=== PATIENT | female | born 1955 | race Caucasian/White ===

== ENCOUNTER → 2017-07-19 | Outpatient (CLI) | payer BC ==
--- NOTE | 2017-07-20 11:20 | MM ---
Reason for exam: screening (asymptomatic). Last mammogram was performed 1 year ago. History: Patient is postmenopausal. Physical Findings: A clinical breast exam by your physician is recommended on an annual basis and results should be correlated with mammographic findings. MG Screening Mammo w CAD Bilateral CC and MLO view(s) were taken. Prior study comparison: July 07, 2016, bilateral MG screening mammo w CAD. March 21, 2015, bilateral MG screening mammo w CAD. There are scattered fibroglandular densities. Finding #1: There is a 4 mm oval mass in the central position of the right breast. Finding #2: There are typically benign calcifications in both breasts. ASSESSMENT: Incomplete: need additional imaging evaluation, BI-RAD 0 RECOMMENDATION: Special view mammogram and ultrasound of the right breast. [facility] will attempt to contact patient to return for supplemental views and ultrasound.
== END | disposition home or self-care (01) ==
LOC: RADMAMWWP 16:43
PROVIDERS: ATTEND Family Medicine
DX: Z12.31 Encounter for screening mammogram for malignant neoplasm of breast (principal)

== ENCOUNTER → 2017-07-25 | Outpatient (CLI) | payer BC ==
--- NOTE | 2017-07-25 09:15 | MM ---
Reason for exam: additional evaluation requested from abnormal screening. Last mammogram was performed less than 1 month ago. History: Patient is postmenopausal. Physical Findings: Nurse did not find any significant physical abnormalities on exam. MG Work Up Mamm w CAD RT Spot compression CC, spot compression MLO, and ML view(s) were taken of the right breast. Prior study comparison: July 19, 2017, bilateral MG screening mammo w CAD. July 07, 2016, bilateral MG screening mammo w CAD. There are scattered fibroglandular densities. 7mm ovoid circumscribed isodense mass with 2 punctate calcifications may be forward on the spot CC view located 8 -9 o'clock. A subtle asymmetry may have been present here on 2011. These results were verbally communicated with the patient and result sheet given to the patient on 07/25/17. ASSESSMENT: Incomplete: need additional imaging evaluation, BI-RAD 0 RECOMMENDATION: Ultrasound of the right breast. SOHAN
--- NOTE | 2017-07-25 09:17 | USB ---
Reason for exam: additional evaluation requested from abnormal screening. History: Patient is postmenopausal. US Breast Workup Limited RT Right breast ultrasound demonstrates a 1.3 x 1.5 x 0.5cm oval, slightly lobulate mass at 7 o'clock 2cm from nipple. Posterior through transmission is demonstrated. Uncertain if this corresponds to the mammographic finding given the larger size. A lymph node or fibroadenoma are favored. A 6 month follow up recommended. These results were verbally communicated with the patient and result sheet given to the patient on 07/25/17. ASSESSMENT: Probably benign, BI-RAD 3 RECOMMENDATION: Follow-up diagnostic mammogram and ultrasound of the right breast in 6 months.
== END | disposition home or self-care (01) ==
LOC: RADMAMWWP 07:31
PROVIDERS: ATTEND Family Medicine
DX: R92.8 Other abnormal and inconclusive findings on diagnostic imaging of breast (principal)
CPT/HCPCS: 76642; G0206

== ENCOUNTER → 2018-01-31 | Outpatient (CLI) | payer BC ==
--- NOTE | 2018-01-31 11:13 | MM ---
Reason for exam: follow-up at short interval from prior study. Last mammogram was performed 6 months ago. History: Patient is postmenopausal. Physical Findings: Nurse did not find any significant physical abnormalities on exam. MG Diagnostic Mammo RT w CAD CC, MLO, and ML view(s) were taken of the right breast. Prior study comparison: July 25, 2017, right breast MG work up mamm w CAD RT. July 19, 2017, bilateral MG screening mammo w CAD. There are scattered fibroglandular densities. There is no discrete abnormality including area of concern. These results were verbally communicated with the patient and result sheet given to the patient on 01/31/18. ASSESSMENT: Incomplete: need additional imaging evaluation, BI-RAD 0 RECOMMENDATION: Ultrasound of the right breast.
--- NOTE | 2018-01-31 11:14 | USB ---
Reason for exam: additional evaluation requested from abnormal screening. History: Patient is postmenopausal. US Breast RT Right complete breast ultrasound includes all four quadrants, the retroareolar region and axilla. Finding demonstrates no cystic or solid lesion seen. Unable to reproduce prior lesion. These results were verbally communicated with the patient and result sheet given to the patient on 01/31/18. ASSESSMENT: Negative, BI-RAD 1 RECOMMENDATION: Return to routine screening mammogram schedule for both breasts. Back on schedule.
== END | disposition home or self-care (01) ==
LOC: RADMAMWWP 08:05
PROVIDERS: ATTEND Family Medicine
DX: R92.8 Other abnormal and inconclusive findings on diagnostic imaging of breast (principal); R92.0 Mammographic microcalcification found on diagnostic imaging of breast; N63.10 Unspecified lump in the right breast, unspecified quadrant
CPT/HCPCS: 77065

== ENCOUNTER → 2018-09-08 | Outpatient (CLI) | payer MEDICARE ==
[2018-09-08 16:02] LABS: Anion Gap 8.5 mmol/L (4.00-12.00); Carbon Dioxide 27.5 mmol/L (21.6-31.8)
== END ==
LOC: LABWHC1 10:03
PROVIDERS: ATTEND Internal Medicine Interventional Cardiology
DX: I10 Essential (primary) hypertension (principal)
CPT/HCPCS: 36415; 80051; 82565; 84520

== ENCOUNTER → 2018-09-26 | Outpatient (CLI) | payer MEDICARE | LOC: LABWHC1 11:15 | PROVIDERS: ATTEND Physician Assistant Medical | DX: R19.7 Diarrhea, unspecified (principal) | CPT/HCPCS: 87045; 87046; 87324; 87328; 87329 ==

== ENCOUNTER 2018-10-25 07:44 | Day surgery (SDC) | payer MEDICARE ==
[2018-10-20 14:06] VITALS: BMI 44.8
[~2018-10-25 07:44] MED LIST: LACTATED RINGERS 1,000 ML IV SCH; LIDOCAINE 1% 20 ML VIAL (10MG/ML) FOR IV START INTRADERMA PRN
--- NOTE | 2018-10-25 08:06 | P.GSHP ---
History of Present Illness H&P Date: 10/25/18 CHIEF COMPLAINT: Colon screen HISTORY OF PRESENT ILLNESS: The patient is a 63-year-old female who presents for colon screen. Lower endoscopy was offered for further evaluation and management. PAST MEDICAL HISTORY: Please see list. PAST SURGICAL HISTORY: Please see list. MEDICATIONS: Please see list. ALLERGIES: Please see list. SOCIAL HISTORY: No illicit drug use FAMILY HISTORY: No reports of Crohn disease or ulcerative colitis. REVIEW OF ORGAN SYSTEMS: CONSTITUTIONAL: No reports of fevers or chills. PHYSICAL EXAM: VITAL SIGNS: Stable GENERAL: Well-developed pleasant in no acute distress. HEENT: No scleral icterus. Extraocular movements grossly intact. Moist buccal mucosa. NECK: Supple without lymphadenopathy. CHEST: Unlabored respirations. Equal bilateral excursions. CARDIOVASCULAR: Regular rate and rhythm. Distal 2+ pulses. ABDOMEN: Soft, nontender, nondistended. MUSCULOSKELETAL: No clubbing, cyanosis, or edema. ASSESSMENT: 1. Colon screen. PLAN: 1. Recommend proceeding with a lower endoscopy Past Medical History Past Medical History: Atrial Fibrillation, Hyperlipidemia, Hypertension Additional Past Medical History / Comment(s): PACEMAKER ([employer]), HX KIDNEY STONES., GALL STONES., STATES DIARRHEA WITH POOR APPETITE AND 20 # WT LOSS OVER 3 WEEKS IN SEPTEMBER . History of Any Multi-Drug Resistant Organisms: None Reported Past Surgical History: Pacemaker Additional Past Surgical History / Comment(s): COLONOSCOPY. PACEMAKER -[employer] BY DR ESCALANTE May. Past Anesthesia/Blood Transfusion Reactions: Postoperative Nausea & Vomiting ( PONV) Additional Past Anesthesia/Blood Transfusion Reaction / Comment(s): PONV AFTER COLONOSCOPY Type of Cardiac Device: Permanent Pacemaker Device Placement Date:: 05/29/2008 Past Psychological History: No Psychological Hx Reported Smoking Status: Never smoker Past Alcohol Use History: None Reported Past Drug Use History: None Reported - Past Family History Mother Family Medical History: Cancer Additional Family Medical History / Comment(s): COLON CANCER Medications and Allergies Home Medications Medication Instructions Recorded Confirmed Type Lisinopril [Zestril] 10 mg PO BID 12/13/15 10/20/18 History Atorvastatin Calcium [Lipitor] 20 mg PO HS 10/20/18 10/25/18 History Ergocalciferol (Vitamin D2) 50,000 unit PO MIRAMONTES 10/20/18 10/25/18 History [Vitamin D2] Hydrochlorothiazide 25 mg PO DAILY 10/20/18 10/25/18 History Metoprolol Tartrate [Lopressor] 25 mg PO BID 10/20/18 10/20/18 History Rivaroxaban [Xarelto] 20 mg PO DAILY 10/20/18 10/20/18 History Allergies Allergy/AdvReac Type Severity Reaction Status Date / Time No Known Allergies Allergy Verified 10/25/18 07:58
[2018-10-25 08:13] VITALS: RESP 16; TEMP 97
[2018-10-25] MEDS ORDERED: PROPOFOL 10 MG/ML 20 ML VIAL IV ONE (08:35)
[2018-10-25] MEDS ORDERED: LIDOCAINE 1% INJ 10MG/ML (20 ML MDV) ONE (08:35)
--- NOTE | 2018-10-25 08:53 | P.PCN ---
Date of Procedure: 10/25/18 Description of Procedure: PREOPERATIVE DIAGNOSIS: Colonoscopy screening, high risk Family history colon cancer, mother POSTOPERATIVE DIAGNOSIS: Colonoscopy screening, high risk Family history colon cancer, mother OPERATION: Colonoscopy to the ileocecal valve and appendiceal orifice. SURGEON: Bernie Hector MD. ANESTHESIA: MAC. INDICATIONS: The patient is a 63-year-old female who presents for colonoscopy screening. Benefits and risks were described and informed consent was obtained. DESCRIPTION OF PROCEDURE: The patient had undergone Gatorade, MiraLAX and Dulcolax prep. She had been brought into the operating room and laid in the left lateral decubitus position. After adequate intravenous sedation, the rectum was examined with 2% lidocaine jelly. No external hemorrhoids were encountered. The rectal tone was within normal limits. No lesions were palpated in the rectal vault. An Olympus colonoscope was advanced until the ileocecal valve and appendiceal orifice were clearly viewed. The prep was excellent with clear visualization of the mucosal folds. The scope was removed with visualization of each mucosal fold. No scattered diverticulosis was encountered. No colonic polyps were found. No evidence of focal colitis was found. Retroflexion of the scope demonstrated grade 1 internal hemorrhoids without active bleeding or inflammation. The colon was desufflated. The patient had tolerated the procedure well. Withdrawal time was over 6 minutes. FINDINGS: Internal hemorrhoids, grade 1 No external prolapsed hemorrhoids. No arteriovenous malformations. No adenomatous polyps. No focal colitis. RECOMMENDATIONS: Lower endoscopy in 5 years per screening guidelines, 2023 Plan - Discharge Summary Discharge Rx Participant: Yes New Discharge Prescriptions: No Action Lisinopril [Zestril] 10 mg PO BID Rivaroxaban [Xarelto] 20 mg PO DAILY Metoprolol Tartrate [Lopressor] 25 mg PO BID Atorvastatin Calcium [Lipitor] 20 mg PO HS Hydrochlorothiazide 25 mg PO DAILY Ergocalciferol (Vitamin D2) [Vitamin D2] 50,000 unit PO MIRAMONTES Discharge Medication List Lisinopril [Zestril] 10 mg PO BID 12/13/15 [History] Atorvastatin Calcium [Lipitor] 20 mg PO HS 10/20/18 [History] Ergocalciferol (Vitamin D2) [Vitamin D2] 50,000 unit PO MIRAMONTES 10/20/18 [History] Hydrochlorothiazide 25 mg PO DAILY 10/20/18 [History] Metoprolol Tartrate [Lopressor] 25 mg PO BID 10/20/18 [History] Rivaroxaban [Xarelto] 20 mg PO DAILY 10/20/18 [History] Follow up Appointment(s)/Referral(s): Bernie Hector MD [STAFF PHYSICIAN] - As Needed Patient Instructions/Handouts: Colonoscopy (DC), Hemorrhoids (DC) Activity/Diet/Wound Care/Special Instructions: Start XARELTO tomorrow. Repeat colonoscopy in 5 years, 2023 Discharge Disposition: HOME SELF-CARE
[2018-10-25 09:17] VITALS: BP 123/70; PULSE 67
== END 2018-10-25 09:29 | disposition home or self-care (01) ==
LOC: ORWHC2ENDO 07:44
PROVIDERS: ATTEND Surgery Plastic and Reconstructive Surgery
DX: Z12.11 Encounter for screening for malignant neoplasm of colon (principal); K64.0 First degree hemorrhoids; Z80.0 Family history of malignant neoplasm of digestive organs; I48.91 Unspecified atrial fibrillation; Z79.01 Long term (current) use of anticoagulants; E78.5 Hyperlipidemia, unspecified; I10 Essential (primary) hypertension; Z95.0 Presence of cardiac pacemaker; Z87.442 Personal history of urinary calculi; Z79.899 Other long term (current) drug therapy
CPT/HCPCS: J2001; J2704; G0105; 45378

== ENCOUNTER → 2018-11-23 | Outpatient (CLI) | payer MEDICARE ==
--- NOTE | 2018-11-24 11:43 | MM ---
Reason for exam: screening (asymptomatic). Last mammogram was performed 10 months ago. History: Patient is postmenopausal. Physical Findings: A clinical breast exam by your physician is recommended on an annual basis and results should be correlated with mammographic findings. MG Screening Mammo w CAD Bilateral CC and MLO view(s) were taken. Prior study comparison: January 31, 2018, right breast MG diagnostic mammo RT w CAD. July 25, 2017, right breast MG work up mamm w CAD RT. There are scattered fibroglandular densities. Stable benign calcifications. There is no discrete abnormality. No significant changes when compared with prior studies. ASSESSMENT: Benign, BI-RAD 2 RECOMMENDATION: Routine screening mammogram of both breasts in 1 year.
== END | disposition home or self-care (01) ==
LOC: RADMAMWWP 11:07
PROVIDERS: ATTEND Physician Assistant Medical
DX: Z12.31 Encounter for screening mammogram for malignant neoplasm of breast (principal)
CPT/HCPCS: 77067

== ENCOUNTER → 2020-07-08 | Outpatient (CLI) | payer MEDICARE ==
--- NOTE | 2020-07-09 09:27 | MM ---
Reason for exam: screening (asymptomatic). Last mammogram was performed 1 year and 7 months ago. History: Patient is postmenopausal. Physical Findings: A clinical breast exam by your physician is recommended on an annual basis and results should be correlated with mammographic findings. MG Screening Mammo w CAD Bilateral CC and MLO view(s) were taken. Prior study comparison: November 23, 2018, bilateral MG screening mammo w CAD. January 31, 2018, right breast MG diagnostic mammo RT w CAD. There are scattered fibroglandular densities. Finding #1: There is a 7 mm equal density (isodense) mass in the subareolar position of the right breast. Finding #2: There are stable typically benign calcifications in both breasts. ASSESSMENT: Incomplete: need additional imaging evaluation, BI-RAD 0 RECOMMENDATION: Special view mammogram of the right breast. If lesion persists on supplemental views, image directed ultrasound is recommended. [facility] will attempt to contact patient to return for supplemental views and ultrasound if indicated.
== END | disposition home or self-care (01) ==
LOC: RADMAMWWP 07:12
PROVIDERS: ATTEND Family Medicine
DX: Z12.31 Encounter for screening mammogram for malignant neoplasm of breast (principal)
CPT/HCPCS: 77067

== ENCOUNTER → 2020-07-10 | Outpatient (CLI) | payer MEDICARE ==
--- NOTE | 2020-07-10 09:01 | MM ---
Reason for exam: additional evaluation requested from abnormal screening. Last mammogram was performed less than 1 month ago. History: Patient is postmenopausal. Physical Findings: Nurse did not find any significant physical abnormalities on exam. MG Work Up Mamm w CAD RT Spot compression CC and spot compression CCRL view(s) were taken of the right breast. Prior study comparison: July 08, 2020, bilateral MG screening mammo w CAD. November 23, 2018, bilateral MG screening mammo w CAD. The breast tissue is heterogeneously dense. This may lower the sensitivity of mammography. Finding: There are intermediate concern, suspicious calcifications in the right breast per marker on CC. Asymmetric breast tissue. These results were verbally communicated with the patient and result sheet given to the patient on 07/10/20. ASSESSMENT: Incomplete: need additional imaging evaluation, BI-RAD 0 RECOMMENDATION: Ultrasound of the right breast.
--- NOTE | 2020-07-10 10:23 | USB ---
Reason for exam: additional evaluation requested from abnormal screening. History: Patient is postmenopausal. US Breast Workup Limited RT Right limited breast ultrasound including focal area of concern, retroareolar and axilla demonstrates a 6 x 2 x 5mm cystic lesion at 12 o'clock/nipple. These results were verbally communicated with the patient and result sheet given to the patient on 07/10/20. ASSESSMENT: Probably benign, BI-RAD 3 RECOMMENDATION: Follow-up diagnostic mammogram and ultrasound of the right breast in 6 months.
== END | disposition home or self-care (01) ==
LOC: RADMAMWWP 08:17
PROVIDERS: ATTEND Family Medicine
DX: R92.8 Other abnormal and inconclusive findings on diagnostic imaging of breast (principal)
CPT/HCPCS: 77065

== ENCOUNTER → 2021-03-26 | Outpatient (CLI) | payer MEDICARE ==
--- NOTE | 2021-03-26 09:53 | USB ---
EXAMINATION TYPE: US breast limited RT DATE OF EXAM: 03/26/2021 COMPARISON: Mammogram same date, ultrasound 07/10/2020 CLINICAL HISTORY: Right retroareolar density on mammogram and prior ultrasound. Findings: Targeted right breast ultrasound was performed in the retroareolar region and axilla. Again seen is a tiny cluster of cysts versus focally dilated duct in the retroareolar right breast measuring up to 0 .7 x 0.3 x 0.5 cm, not significantly changed since the prior examination and probably benign. Follow- up ultrasound is recommended in 6 months. In the right axilla, there is a lymph node which demonstrates minimal cortical thickening measuring u p to 0.3 cm which is probably benign. Clinical correlation is recommended. Follow-up ultrasound is re commended in 6 months. IMPRESSION: 1. Unchanged likely cluster of cysts versus focally dilated duct in the retroareolar right breast for which follow-up ultrasound is recommended in 6 months. 2. There is a single deep right axillary lymph node with borderline cortical thickening. Please corre late clinically as this may be a reactive lymph node. At least follow-up ultrasound is recommended in 6 months. BI-RADS 3, probably benign.
--- NOTE | 2021-03-26 10:16 | MM ---
Reason for exam: follow-up at short interval from prior study. Last mammogram was performed 9 months ago. History: Patient is postmenopausal. Physical Findings: Nurse did not find any significant physical abnormalities on exam. MG 3D Diag Mammo W/Cad RT CC and MLO view(s) were taken of the right breast. Prior study comparison: July 10, 2020, right breast MG work up mamm w CAD RT. July 08, 2020, bilateral MG screening mammo w CAD. November 23, 2018, bilateral MG screening mammo w CAD. There are scattered fibroglandular densities. Right retroareolar density is unchanged. These results were verbally communicated with the patient and result sheet given to the patient on 03/26/21. ASSESSMENT: Incomplete: need additional imaging evaluation, BI-RAD 0 RECOMMENDATION: Ultrasound of the right breast. (as per prior report)
== END | disposition home or self-care (01) ==
LOC: RADMAMWWP 08:53
PROVIDERS: ATTEND Family Medicine
DX: N64.89 Other specified disorders of breast (principal); R59.0 Localized enlarged lymph nodes; Z78.0 Asymptomatic menopausal state
CPT/HCPCS: 77065; 76642; G0279; 77061

== ENCOUNTER → 2021-11-02 | Outpatient (CLI) | payer MEDICARE ==
--- NOTE | 2021-11-02 10:59 | MM ---
Reason for exam: additional evaluation requested from prior study. Last mammogram was performed 7 months ago. History: Patient is postmenopausal. Physical Findings: Nurse did not find any significant physical abnormalities on exam. MG Diagnostic Mammo w CAD MANI Bilateral CC and MLO view(s) were taken. Prior study comparison: March 26, 2021, right breast MG 3d diag mammo w/cad RT. July 10, 2020, right breast MG work up mamm w CAD RT. There are scattered fibroglandular densities. Finding #1: There is a 6 mm equal density (isodense), circumscribed oval mass located 1 cm from the nipple in the subareolar position of the right breast. Finding #2: There are increased intermediate concern, suspicious, fine, grouped/clustered calcifications in the right breast. New finding since March 26, 2021 and July 10, 2020. These results were verbally communicated with the patient and result sheet given to the patient on 11/02/21. ASSESSMENT: Incomplete: need additional imaging evaluation, BI-RAD 0 RECOMMENDATION: Ultrasound of the right breast.
--- NOTE | 2021-11-02 11:01 | USB ---
Reason for exam: additional evaluation requested from abnormal screening. History: Patient is postmenopausal. US Breast Limited RT Right limited breast ultrasound including focal area of concern, retroareolar and axilla demonstrates a 1.3 x 0.4 x 0.4cm duct ectasia at the posterior nipple, questionable microcalcifications. These results were verbally communicated with the patient and result sheet given to the patient on 11/02/21. ASSESSMENT: Suspicious, BI-RAD 4 RECOMMENDATION: Ultrasound core biopsy of the right breast. Called Dr. Pearson's office with mammographic findings and has scheduled an appointment for the patient for 11/05/21 at 4:[address] Pearl. Biopsy scheduled for 11/11/21 at 8:00. PRELIMINARY REPORT CALLED AND FAXED TO DR. PEARL ON 11/02/21.
== END | disposition home or self-care (01) ==
LOC: RADMAMWWP 07:36
PROVIDERS: ATTEND Family Medicine
DX: R92.8 Other abnormal and inconclusive findings on diagnostic imaging of breast (principal); N63.0 Unspecified lump in unspecified breast; Z78.0 Asymptomatic menopausal state
CPT/HCPCS: 77066

== ENCOUNTER → 2021-11-05 | Outpatient (CLI) | payer MEDICARE ==
[2021-11-05 16:13] VITALS: BP 112/64; RESP 18; TEMP 98
--- NOTE | 2021-11-05 16:27 | P.GSHP ---
History of Present Illness H&P Date: 11/05/21 Chief Complaint: abnormal right breast mammogram and ultrasound Haley is a 66 year old white female seen in consultation for Trena Downs N.P.. She show any new lumps masses or nodules of concern in either breast. She had a routine screening mammogram and ultrasound of the right breast performed within the last week. This revealed a lesion posterior to the right nipple areolar complex. There were some minimal calcifications however was felt to be seen best on ultrasound for core biopsy purposes. Again the patient does not feel any lumps masses or nodules of concern in either breast. She is not complaining of any pain in her breast. She has not had any recent trauma or infection in the breast. Nicotine: none caffiene: Diet Coke daily 1 Chocolate: none Family history: Daughter: Colon cancer Mother: Colon cancer Hormonal history: Menarche: 13 , breast fed: no, age at first : 19 menopause: 48 BCP:7 years hormones: none Surgical history: Pacemaker Medical history: Atrial fibrillation HTN hyperlipedema Social History: Nicotine: Negative Alcohol: Negative Drugs: Negative - Constitutional Constitutional: Denies chills, Denies fever - EENT Eyes: denies blurred vision, denies pain Ears: deny: decreased hearing, tinnitus Ears, nose, mouth and throat: Denies headache, Denies sore throat - Breasts Breasts: bilateral: as per HPI - Cardiovascular Cardiovascular: Denies chest pain, Denies shortness of breath - Respiratory Respiratory: Denies cough, Denies 7 - Gastrointestinal Gastrointestinal: Denies abdominal pain, Denies diarrhea, Denies nausea, Denies vomiting - Genitourinary (Female) Genitourinary: Denies dysuria, Denies hematuria - Menstruation Menstruation: Reports postmenopausal - Musculoskeletal Musculoskeletal: Denies myalgias - Integumentary Integumentary: Denies pruritus, Denies rash - Neurological Neurological: Denies numbness, Denies weakness - Psychiatric Psychiatric: Denies anxiety, Denies depression - Endocrine Endocrine: Denies fatigue, Denies weight change - Hematologic/Lymphatic Comment: patient is on xeralto - Allergic/Immunologic Allergic/Immunologic: Reports as per HPI Past Medical History Past Medical History: Atrial Fibrillation, Hyperlipidemia, Hypertension Additional Past Medical History / Comment(s): back pain History of Any Multi-Drug Resistant Organisms: None Reported Past Surgical History: Pacemaker Additional Past Surgical History / Comment(s): COLONOSCOPY. PACEMAKER -[employer] BY DR ESCALANTE May. Past Anesthesia/Blood Transfusion Reactions: Postoperative Nausea & Vomiting (PONV) Additional Past Anesthesia/Blood Transfusion Reaction / Comment(s): PONV AFTER COLONOSCOPY Type of Cardiac Device: Permanent Pacemaker Device Placement Date:: 05/29/2008 Past Psychological History: No Psychological Hx Reported Past Alcohol Use History: None Reported Past Drug Use History: None Reported - Past Family History Mother Family Medical History: Cancer Additional Family Medical History / Comment(s): COLON CANCER Medications and Allergies Home Medications Medication Instructions Recorded Confirmed Type lisinopriL [Zestril] 10 mg PO BID 12/13/15 11/05/21 History Atorvastatin Calcium [Lipitor] 20 mg PO HS 10/20/18 11/05/21 History Ergocalciferol (Vitamin D2) 50,000 unit PO MIRAMONTES 10/20/18 11/05/21 History [Vitamin D2] Metoprolol Tartrate [Lopressor] 25 mg PO BID 10/20/18 11/05/21 History Rivaroxaban [Xarelto] 20 mg PO DAILY 10/20/18 11/05/21 History hydroCHLOROthiazide 25 mg PO DAILY 10/20/18 11/05/21 History Allergies Allergy/AdvReac Type Severity Reaction Status Date / Time No Known Allergies Allergy Verified 11/05/21 16:03 Surgical - Exam BMI 47.6 - General no distress - Neck trachea midline - Respiratory normal respiratory effort - Cardiovascular Rhythm: regular Heart Sounds: normal: S1, S2 - Abdomen Abdomen: soft - Integumentary normal turgor - Neurologic no disoriented, no combative - Musculoskeletal normal gait, normal posture - Psychiatric oriented to time, oriented to place, memory intact Breast Exam: BRA: 44C inspection: Lateral grade 3 ptosis Palpation: Right breast: Multiple positional exam fibrocystic changes no dominant masses or nodules of concern Particular attention to the area posterior to the nipple areolar complex does not reveal any discrete mass Right axilla: No adenopathy of concern Left breast: Multiple positional exam fibrocystic changes no dominant masses or nodules of concern Left axilla: No adenopathy of concern Results Case reviewed in detail with Dr. Seymour from radiology Assessment and Plan Assessment: Impression: Abnormal right breast mammogram and ultrasound with attention to the posterior nipple areolar complex Fibrocystic breast changes atrial fibrillation/ she has pacemaker and is on xeralto BMI 47.6 Hypertension Plan: Ultrasound-guided core biopsy lesion right breast Follow-up after ultrasound-guided core biopsy Stop xeralto as per cardiology The risk and benefits of the procedure discussed with the patient. Risks include but are not limited to bleeding, infection, reaction to the anesthetic. We must ascertain that the areas correctly biopsy and if this were to be d iscordant then further biopsy may be recommended. CC: Trena Downs
== END ==
LOC: WWCWWP 15:50
PROVIDERS: ATTEND Surgery
DX: N60.11 Diffuse cystic mastopathy of right breast (principal); I48.91 Unspecified atrial fibrillation; I10 Essential (primary) hypertension; E78.5 Hyperlipidemia, unspecified; Z95.0 Presence of cardiac pacemaker; Z79.01 Long term (current) use of anticoagulants; Z79.899 Other long term (current) drug therapy

== ENCOUNTER → 2021-11-11 | Day surgery (SDC) | payer MEDICARE ==
[2021-11-11 07:21] VITALS: RESP 16; TEMP 98.1
[2021-11-11 09:23] VITALS: BP 120/80; PULSE 71
--- NOTE | 2021-11-11 11:11 | USB ---
EXAMINATION TYPE: US biopsy breast VAD RT, MG diagnostic mammo RT wo CAD DATE OF EXAM: 11/11/2021 CLINICAL HISTORY: R92.8 ABN MAMMO. TECHNIQUE: Ultrasound guided core biopsy of right 12:00 nipple region. COMPARISON: NONE FINDINGS: The procedure of ultrasound guided core biopsy was explained to the patient. Benefits, alt ernatives, and risks were discussed. An informed consent was then obtained. The patient was placed in supine positioning for imaging and for the procedure. The overlying skin w as prepped and draped in usual sterile fashion. Lidocaine buffered with bicarbonate was used as anes thetic into the skin and subcutaneous tissue up to area of concern in the right 12:00 nipple region. Under ultrasound guidance, a 12-gauge vacuum assisted biopsy gun device was used to obtain 2 core leora ples. The lesion was no longer visualized. Following this, a biopsy clip was left in lesion. Postpro cedural mammogram demonstrates appropriate clip placement. The patient tolerated the procedure well without any immediate complication. The patient was kept in the radiology department for short stay after the procedure and then discharged home in stable condi tion. IMPRESSION: Successful, uncomplicated ultrasound guided core biopsy of area of concern in the right 1 2:00 nipple region., full pathology results to follow.
== END | disposition home or self-care (01) ==
LOC: RADUSWWP 07:02
PROVIDERS: ATTEND Surgery
DX: N60.11 Diffuse cystic mastopathy of right breast (principal)
CPT/HCPCS: 88305; 77065; 19083; A4648; J2001

== ENCOUNTER → 2021-11-27 | Outpatient (CLI) | payer MEDICARE ==
[2021-11-27 12:01] VITALS: BP 122/77; PULSE 67; RESP 17; TEMP 97.8
--- NOTE | 2021-11-27 12:29 | P.PN ---
Subjective Progress Note Date: 11/27/21 Principal diagnosis: Fibrocystic breast changes Haley is a 66 year old white female seen in consultation for Trena Downs N.P.. She show any new lumps masses or nodules of concern in either breast. She had a routine screening mammogram and ultrasound of the right breast per formed within the last week. This revealed a lesion posterior to the right nipple areolar complex. There were some minimal calcifications however was felt to be seen best on ultrasound for core biopsy purposes. Again the patient does not feel any lumps masses or nodules of concern in either breast. She is not complaining of any pain in her breast. She has not had any recent trauma or infection in the breast. An ultrasound core biopsy was done on 11-11-21 which was benign breast tissue. The patient tolerated the procedure without difficulty. It was felt to be benign concordant. Objective - Vital Signs Vital signs: Vital Signs Temp 97.8 F 11/27/21 11:59 Pulse 67 11/27/21 11:59 Resp 17 11/27/21 11:59 BP 122/77 11/27/21 11:59 Pulse Ox 100 11/27/21 11:59 Intake & Output 11/26/21 11/27/21 11/27/21 18:59 06:59 18:59 Weight 117.934 kg - Exam BMI 47.6 - Constitutional General appearance: Present: cooperative - EENT Eyes: Present: EOMI ENT: Present: hearing grossly normal - Neck Neck: Present: normal ROM - Respiratory Respiratory: bilateral: CTA - Cardiovascular Rhythm: regular Heart sounds: normal: S1, S2 - Integumentary Integumentary: Present: normal turgor - Psychiatric Psychiatric: Present: A&O x's 3, appropriate affect, intact judgment & insight - Additional findings Additional findings: Breast examination: Examination is limited to inspection of the right breast at the biopsy site Mild ecchymosis no evidence of any infection or hematoma Assessment and Plan Assessment: Impression: Patient status post ultrasound-guided core biopsy right breast/this was done and 3922, it revealed benign breast with fibrocystic changes This was felt to be benign and concordant Plan: Repeat right breast mammogram and ultrasound in 6 months with physician exam at that time CC: Trena Downs
== END ==
LOC: WWCWWP 11:53
PROVIDERS: ATTEND Surgery
DX: N60.11 Diffuse cystic mastopathy of right breast (principal); D24.1 Benign neoplasm of right breast

== ENCOUNTER → 2022-05-17 | Outpatient (CLI) | payer MEDICARE ==
--- NOTE | 2022-05-17 14:28 | MM ---
Reason for Exam: Follow-up at short interval from prior study. Last screening mammogram was performed 7 month(s) ago. Patient History: Menarche at age 12. First Full-Term at age 19. Postmenopausal. Previous chest radiation therapy. 11/11/2021, Benign Core Biopsy on the right side. Risk Values: Jemma 5 year model risk: 1.7%. NCI Lifetime model risk: 5.1%. Prior Study Comparison: 03/26/2021 Right Diagnostic Mammogram, [facility]. 11/02/2021 Bilateral Diagnostic Mammogram, [facility]. 11/11/2021 Right Diagnostic Mammogram, [facility]. Tissue Density: Right: There are scattered fibroglandular densities. Findings: Analyzed By CAD. Less distinct appearance of the right retroareolar breast mass with biopsy clip in place. Stable round calcifications within the posterior right breast. No new worrisome calcifications or mass. Overall Assessment: Benign, BI-RAD 2 Management: Screening Mammogram of both breasts in 6 months. A clinical breast exam by your physician is recommended on an annual basis and results should be correlated with mammographic findings. This exam should not preclude additional follow-up of suspicious palpable abnormalities. Results were given to the patient verbally at the time of exam. Electronically signed and approved by: Elijah Draper D.O.
== END | disposition home or self-care (01) ==
LOC: RADMAMWWP 14:04
PROVIDERS: ATTEND Surgery
DX: R92.1 Mammographic calcification found on diagnostic imaging of breast (principal); Z78.0 Asymptomatic menopausal state
CPT/HCPCS: 77065

== ENCOUNTER → 2022-05-27 | Outpatient (CLI) | payer MEDICARE ==
[2022-05-27 12:23] VITALS: BP 109/73; PULSE 63; RESP 16; TEMP 97
--- NOTE | 2022-05-27 12:51 | P.PN ---
Subjective Progress Note Date: 05/27/22 Principal diagnosis: Fibrocystic breast changes Haley is a 67 year old white female status post ultrasound core biopsy of the right breast and 3922. Pathology revealed benign breast tissue. Her last bilateral mammogram was in October 2021, no lesions of concern were noted in the left breast. She had a right breast mammogram on which was felt to be benign BIRADS 2. She is not complaining of any new lumps masses or nodules in either breast. Jemma Risk analysis: five-year risk for breast cancer is 1.7% Lifetime risk 5.1% Patient declined chemoprevention. Nicotine: none caffiene: Diet Coke daily 1 Chocolate: none Family history: Daughter: Colon cancer Mother: Colon cancer Hormonal history: Menarche: 13 , breast fed: no, age at first : 19 menopause: 48 BCP:7 years hormones: none Surgical history: Pacemaker Medical history: Atrial fibrillation HTN hyperlipedema Social History: Nicotine: Negative Alcohol: Negative Drugs: Negative - Constitutional Constitutional: Denies chills, Denies fever - EENT Eyes: denies blurred vision, denies pain Ears: deny: decreased hearing, tinnitus Ears, nose, mouth and throat: Denies headache, Denies sore throat - Breasts Breasts: bilateral: as per HPI - Cardiovascular Cardiovascular: Denies chest pain, Denies shortness of breath - Respiratory Respiratory: Denies cough - Gastrointestinal Gastrointestinal: Denies abdominal pain, Denies diarrhea, Denies nausea, Denies vomiting - Genitourinary (Female) Genitourinary: Denies dysuria, Denies hematuria - Menstruation Menstruation: Reports postmenopausal - Musculoskeletal Musculoskeletal: Denies myalgias - Integumentary Integumentary: Denies pruritus, Denies rash - Neurological Neurological: Denies numbness, Denies weakness - Psychiatric Psychiatric: Denies anxiety, Denies depression - Endocrine Endocrine: Denies fatigue, Denies weight change - Hematologic/Lymphatic Comment: patient is on xeralto - Allergic/Immunologic Allergic/Immunologic: Reports as per HPI Objective - Vital Signs Vital signs: Vital Signs Temp 97.0 F L 05/27/22 12:21 Pulse 63 05/27/22 12:21 Resp 16 05/27/22 12:21 BP 109/73 05/27/22 12:21 Pulse Ox 100 05/27/22 12:21 FiO2 Intake & Output 05/26/22 05/27/22 05/27/22 18:59 06:59 18:59 Weight 117.934 kg - Constitutional General appearance: Present: cooperative - EENT Eyes: Present: EOMI ENT: Present: hearing grossly normal - Neck Neck: Present: normal ROM - Respiratory Respiratory: bilateral: CTA - Cardiovascular Rhythm: regular Heart sounds: normal: S1, S2 - Integumentary Integumentary: Present: normal turgor - Musculoskeletal Musculoskeletal: Present: gait normal - Psychiatric Psychiatric: Present: A&O x's 3, appropriate affect, intact judgment & insight - Additional findings Additional findings: Breast Exam: BRA: 46C Inspection: Fungal infection lateral inferior aspect of the right breast, bilateral grade 3 ptosis Palpation: Right breast: Multi-positional exam fibrocystic changes no dominant masses or nodules of concern Right axilla: No adenopathy of concern Left breast: Multi-positional exam fibrocystic changes no dominant masses or nodules of concern Left axilla: No adenopathy of concern Assessment and Plan Assessment: Impression: Fibrocystic breast changes Fungal infection under right breast Plan: Patient is for bilateral mammogram July 2022 Follow up after bilateral mammogram Nystatin cream for fungal infection Patient to follow up sooner any questions or concerns Cc: Trena Downs
== END ==
LOC: WWCWWP 12:08
PROVIDERS: ATTEND Surgery
DX: N60.11 Diffuse cystic mastopathy of right breast (principal); N60.12 Diffuse cystic mastopathy of left breast; B36.8 Other specified superficial mycoses; I10 Essential (primary) hypertension; I48.91 Unspecified atrial fibrillation; E78.5 Hyperlipidemia, unspecified

== ENCOUNTER → 2022-07-12 | Outpatient (CLI) | payer MEDICARE | END | disposition home or self-care (01) | LOC: RADMAMWWP 10:14 | PROVIDERS: ATTEND Surgery | DX: Z53.9 Procedure and treatment not carried out, unspecified reason (principal) ==

== ENCOUNTER → 2022-12-10 | Outpatient (CLI) | payer MEDICARE ==
[2022-12-10 13:14] VITALS: BP 132/80; PULSE 45; RESP 16; TEMP 98.6
--- NOTE | 2022-12-10 13:19 | P.PN ---
Subjective Progress Note Date: 12/10/22 Principal diagnosis: Fibrocystic breast changes, fungal infection under both breast 12-10-22 Haley is a 67 year old white female status post ultra-sound core biopsy of a site in the right breast on 11-11-21. This was benign concordant. 11-15-22 bilateral mammogram BIRAD 2, personally reviewed Patient has declined chemo-prevention in the past. Jemma 5 year: 1.7% life time risk: 5.1% Nicotine: none caffiene: Diet Coke daily 1 Chocolate: none Family history: Daughter: Colon cancer Mother: Colon cancer Hormonal history: Menarche: 13 , breast fed: no, age at first : 19 menopause: 48 BCP:7 years hormones: none Surgical history: Pacemaker Medical history: Atrial fibrillation HTN hyperlipedema Social History: Nicotine: Negative Alcohol: Negative Drugs: Negative - Constitutional Constitutional: Denies chills, Denies fever - EENT Eyes: denies blurred vision, denies pain Ears: deny: decreased hearing, tinnitus Ears, nose, mouth and throat: Denies headache, Denies sore throat - Breasts Breasts: bilateral: as per HPI - Cardiovascular Cardiovascular: Denies chest pain, Denies shortness of breath - Respiratory Respiratory: Denies cough - Gastrointestinal Gastrointestinal: Denies abdominal pain, Denies diarrhea, Denies nausea, Denies vomiting - Genitourinary (Female) Genitourinary: Denies dysuria, Denies hematuria - Menstruation Menstruation: Reports postmenopausal - Musculoskeletal Musculoskeletal: Denies myalgias - Integumentary Integumentary: Denies pruritus, Denies rash - Neurological Neurological: Denies numbness, Denies weakness - Psychiatric Psychiatric: Denies anxiety, Denies depression - Endocrine Endocrine: Denies fatigue, Denies weight change - Hematologic/Lymphatic Comment: patient is on xeralto - Allergic/Immunologic Allergic/Immunologic: Reports as per HPI Past Medical History Past Medical History: Atrial Fibrillation, Hyperlipidemia, Hypertension Additional Past Medical History / Comment(s): back pain History of Any Multi-Drug Resistant Organisms: None Reported Past Surgical History: Pacemaker Additional Past Surgical History / Comment(s): COLONOSCOPY. PACEMAKER -[employer] BY DR ESCALANTE May. Past Anesthesia/Blood Transfusion Reactions: Postoperative Nausea & Vomiting (PONV) Additional Past Anesthesia/Blood Transfusion Reaction / Comment(s): PONV AFTER COLONOSCOPY Type of Cardiac Device: Permanent Pacemaker Device Placement Date:: 05/29/2008 Past Psychological History: No Psychological Hx Reported Past Alcohol Use History: None Reported Past Drug Use History: None Reported - Past Family History Mother Family Medical History: Cancer Additional Family Medical History / Comment(s): COLON CANCER Medications and Allergies Home Medications Medication Instructions Recorded Confirmed Type lisinopriL [Zestril] 10 mg PO BID 12/13/15 11/05/21 History Atorvastatin Calcium [Lipitor] 20 mg PO HS 10/20/18 11/05/21 History Ergocalciferol (Vitamin D2) 50,000 unit PO MIRAMONTES 10/20/18 11/05/21 History [Vitamin D2] Metoprolol Tartrate [Lopressor] 25 mg PO BID 10/20/18 11/05/21 History Rivaroxaban [Xarelto] 20 mg PO DAILY 10/20/18 11/05/21 History hydroCHLOROthiazide 25 mg PO DAILY 10/20/18 11/05/21 History Allergies Allergy/AdvReac Type Severity Reaction Status Date / Time No Known Allergies Allergy Verified 11/05/21 16:03 Objective - Constitutional General appearance: Present: cooperative - EENT Eyes: Present: EOMI ENT: Present: hearing grossly normal - Neck Neck: Present: normal ROM - Respiratory Respiratory: bilateral: CTA - Cardiovascular Rhythm: regular Heart sounds: normal: S1, S2 - Gastrointestinal General gastrointestinal: Present: soft - Integumentary Integumentary: Present: normal turgor - Musculoskeletal Musculoskeletal: Present: gait normal - Psychiatric Psychiatric: Present: A&O x's 3, appropriate affect, intact judgment & insight - Additional findings Additional findings: Breast Exam: BRA: 44C inspection: Lateral grade 3 ptosis Palpation: Right breast: Multiple positional exam fibrocystic changes no dominant masses or nodules of concern Particular attention to the area posterior to the nipple areolar complex does not reveal any discrete mass Right axilla: No adenopathy of concern Left breast: Multiple positional exam fibrocystic changes no dominant masses or nodules of concern Left axilla: No adenopathy of concern Lateral fungal infection under both breast Assessment and Plan Assessment: Impression: Atrial fibrillation HTN hyperlipedema Fibrocystic breast changes Recent bilateral mammogram 25549 benign BIRADS 2 personally reviewed Fungal infection under both breasts Plan: Nystatin as needed Bilateral mammogram 1 year Follow-up in 1 year CC: Trena Downs
== END ==
LOC: WWCWWP 12:36
PROVIDERS: ATTEND Surgery
DX: I48.91 Unspecified atrial fibrillation (principal); I10 Essential (primary) hypertension; E78.5 Hyperlipidemia, unspecified; Z90.13 Acquired absence of bilateral breasts and nipples; Z12.31 Encounter for screening mammogram for malignant neoplasm of breast; Z79.899 Other long term (current) drug therapy

== ENCOUNTER 2023-03-28 13:45 | Day surgery (SDC) | payer MEDICARE ==
[~2023-03-28 13:45] MED LIST changes: -LACTATED RINGERS 1,000 ML IV SCH; -LIDOCAINE 1% 20 ML VIAL (10MG/ML) FOR IV START INTRADERMA PRN; +ceFAZolin 1 GM in SODIUM CHLORIDE 0.9% IRRIG BTL 250 ML IRRIGATION PRN
[2023-03-28] MEDS: SODIUM CHLORIDE 0.9% 1,000 ML IV SCH ×2 (14:42→19:43)
[2023-03-28 14:47] LABS: Basophils % (A) 0 %; Eosinophils # (A) 0.2 k/uL (0-0.7); Eosinophils % (A) 3 %; HCT 33.7 % (34.0-46.0); HGB 11.5 gm/dL (11.4-16.0); Lymphocytes # (A) 1.5 k/uL (1.0-4.8); Lymphocytes % (A) 25 %; MCH 30.3 pg (25.0-35.0); MCHC 34.2 g/dL (31.0-37.0); MCV 88.6 fL (80.0-100.0); Mean Platelet Volume 8.6; Monocytes # (A) 0.3 k/uL (0-1.0); Monocytes % (A) 5 %; Neutrophils # (A) 3.9 k/uL (1.3-7.7); Neutrophils % (A) 65 %; Platelet Count 224 k/uL (150-450); RDW 14.1 % (11.5-15.5)
[2023-03-28 14:57] LABS: African American GFR (CKD) 62 (>60 ml/min/1.73 sqM); Anion Gap 2 mmol/L; Blood Urea Nitrogen 19 mg/dL (7-17); Calcium 9.5 mg/dL (8.4-10.2); Carbon Dioxide 28 mmol/L (22-30); Chloride 102 mmol/L (98-107); Glucose 96 mg/dL (74-99); Non-African American GFR(CKD) 54 (>60 ml/min/1.73 sqM); Potassium 3.8 mmol/L (3.5-5.1); Sodium 132 mmol/L (137-145)
[2023-03-28] MEDS ORDERED: LIDOCAINE 1% INJ 10MG/ML (20 ML MDV) ONE ×2 (17:12)
[2023-03-28] MEDS: LIDOCAINE 1% INJ 10MG/ML (20 ML MDV) SQ ONE ×2 (17:16→18:04)
[2023-03-28] MEDS ORDERED: SODIUM CHLORIDE 0.9% IVPB ONE (17:28)
[2023-03-28] MEDS ORDERED: VANCOMYCIN IVPB ONE (17:28)
[2023-03-28] MEDS ORDERED: fentaNYL (PF) 50 MCG/ML 2 ML AMP ONE (17:33)
[2023-03-28] MEDS: fentaNYL (PF) 50 MCG/ML 2 ML AMP IVP ONE ×2 (17:36→18:05)
[2023-03-28] MEDS ORDERED: VANCOMYCIN 1,750 MG in SODIUM CHLORIDE 0.9% 500 ML 500 ML IVPB ONE (18:00)
--- NOTE | 2023-03-28 18:32 | P.EPPROC ---
- EP Procedure Note Electrophysiology Procedure Note: Transvenous temporary pacing procedure Indication for the procedure: Severe underlying bradycardia/pacemaker dependency Patient was brought to the EP lab in a fasting state. Written informed consent was obtained prior to the procedure. The right groin was prepped and draped as a protocol. A 6-Cymraes sheath was placed in the right femoral vein. Via this, a temporary pacing catheter was placed in the right ventricle. Thresholds were interrogated. Temporary pacing was performed through the rest of the procedure. At the end of the entire procedure, the TVP was removed. The sheath was removed and hemostasis was assured. Patient tolerated the procedure well without any acute complications. Procedure performed Transvenous temporary pacing
--- NOTE | 2023-03-28 18:37 | P.EPPROC ---
- EP Procedure Note Electrophysiology Procedure Note: Diagnosis Symptomatic bradycardia/status post dual-chamber pacemaker implantation Now pacemaker dependent Device at LELE on normal battery depletion Procedure Dual-chamber pacemaker generator change Details Patient was brought to the EP lab in a fasting state. Written informed consent was obtained prior to the procedure. Conscious sedation provided. Cinefluoroscopy of the leads performed. Atrial lead screwed in the right atrial appendage RV lead in the RV apex, loss of heel noted, chronic IV antibiotics administered. Local anesthesia administered. A 4 cm incision made in the pectoral area. Device explanted Device was originally in a very subcutaneous location A new subfascial pocket was made and the new generator was placed in this Leads were freed from the surrounding capsule Partial capsulectomy was performed Hemostasis was assured Chronic atrial lead, [employer] model #4479. P waves 0.6 mV, pacing impedance 285 ohms and pacing threshold 0.75 V at 0.4 ms Chronic RV lead in RV apex. 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
[2023-03-28] MEDS ORDERED: ACETAMINOPHEN TAB 325 MG TAB PO PRN (18:39)
[2023-03-28] MEDS ORDERED: ATORVASTATIN 20 MG TAB PO SCH (21:00)
[2023-03-28] MEDS: lisinopriL 10 MG TAB PO SCH (21:11)
[2023-03-28] MEDS: METOPROLOL TARTRATE 25 MG TAB PO SCH ×2 (21:11→22:39)
[2023-03-29] MEDS: SODIUM CHLORIDE 0.9% 1,000 ML IV SCH ×2 (00:37)
[2023-03-29] MEDS ORDERED: hydroCHLOROthiazide 25 MG TAB PO SCH (09:00)
[2023-03-29] MEDS: METOPROLOL TARTRATE 25 MG TAB PO SCH (10:33)
[2023-03-29] MEDS: lisinopriL 10 MG TAB PO SCH (10:33)
[2023-03-29 10:36] VITALS: BP 102/66; PULSE 56; RESP 18; TEMP 97.7
--- NOTE | 2023-03-29 16:31 | P.DS ---
Providers Attending physician: Joe Quiroz Primary care physician: Stated None Hospital Course: Patient is doing well. Minimal soakage the dressing site Mild discomfort at the surgical site Groins of healed well no hematoma no swelling in the right groin from the TVP Normal breath sounds are clear Heart sounds are normal Blood pressure 119/61 mmHg pulse rate 70 afebrile Impression Complete heart block Pacemaker at LELE Status post dual-chamber pacemaker generator change, backup TVP Plan discharge home today after completion of IV antibiotics Follow up in the device clinic in one week Plan - Discharge Summary Discharge Rx Participant: No New Discharge Prescriptions: No Action lisinopriL [Zestril] 10 mg PO BID Rivaroxaban [Xarelto] 20 mg PO HS Metoprolol Tartrate [Lopressor] 25 mg PO BID Atorvastatin Calcium [Lipitor] 20 mg PO HS RX: hydroCHLOROthiazide 25 mg PO QAM Cholecalciferol [Vitamin D3 (25 Mcg = 1000 Iu)] 25 mcg PO QAM Discharge Medication List lisinopriL [Zestril] 10 mg PO BID 12/13/15 [History] Atorvastatin Calcium [Lipitor] 20 mg PO HS 10/20/18 [History] Metoprolol Tartrate [Lopressor] 25 mg PO BID 10/20/18 [History] RX: hydroCHLOROthiazide 25 mg PO QAM 10/20/18 [History] Rivaroxaban [Xarelto] 20 mg PO HS 10/20/18 [History] Cholecalciferol [Vitamin D3 (25 Mcg = 1000 Iu)] 25 mcg PO QAM 03/23/23 [History] Follow up Appointment(s)/Referral(s): Joe Quiroz MD [STAFF PHYSICIAN] - 1 Week (APPOINTMENT MADE ON March @ 1:00PM FOR YOUR DEVICE CHECK. KEEP YOUR APPOINTMENT WITH DR. RUIZ PREVIOUSLY SCHEDULED.) Patient Instructions/Handouts: Moderate Sedation (DC), Pacemaker Generator Change (DC) Discharge Disposition: HOME SELF-CARE
== END 2023-03-29 11:27 | disposition home or self-care (01) ==
LOC: CATHEP 13:45 → 6NMEDSUR 18:38 → CATHEP 03-29 11:27
PROVIDERS: ATTEND Internal Medicine Clinical Cardiac Electrophysiology
DX: R00.1 Bradycardia, unspecified (principal); I10 Essential (primary) hypertension; E78.00 Pure hypercholesterolemia, unspecified; Z79.01 Long term (current) use of anticoagulants; Z79.899 Other long term (current) drug therapy
CPT/HCPCS: 33228; 80048; 85025; C1894; C1769 ×2; C1760; C1730; C1785; J3370; J0690 ×2; J2001; J3010

== ENCOUNTER → 2023-11-17 | Outpatient (CLI) | payer MEDICARE ==
--- NOTE | 2023-11-20 18:05 | MM ---
Reason for Exam: Screening (asymptomatic). Last screening mammogram was performed 12 month(s) ago. Patient History: Menarche at age 12. First Full-Term at age 19. Postmenopausal. Previous chest radiation therapy. 11/11/2021, Benign Core Biopsy on the right side. Risk Values: Jemma 5 year model risk: 1.7%. NCI Lifetime model risk: 4.9%. Prior Study Comparison: 01/31/2018 Right Diagnostic Mammogram, [facility]. 11/23/2018 Bilateral Screening Mammogram, [facility]. 07/08/2020 Bilateral Screening Mammogram, [facility]. 07/10/2020 Right Diagnostic Mammogram, [facility]. 03/26/2021 Right Diagnostic Mammogram, [facility]. 11/02/2021 Bilateral Diagnostic Mammogram, [facility]. 11/11/2021 Right Diagnostic Mammogram, [facility]. 05/17/2022 Right MG diagnostic mammo RT w CAD, [facility]. 11/15/2022 Bilateral MG 3D diag mammo w/cad MANI, [facility]. Tissue Density: There are scattered areas of fibroglandular density. Findings: Analyzed By CAD. Microclip right breast. Additional inferior dermal calcifications are unchanged. Generator device projects over the left pectoralis muscle. There is no suspicious group of microcalcifications or new suspicious mass in either breast. Overall Assessment: Benign, BI-RAD 2 Management: Screening Mammogram of both breasts in 1 year. . Patient should continue monthly self-breast exams. A clinical breast exam by your physician is recommended on an annual basis. This exam should not preclude additional follow-up of suspicious palpable abnormalities. Note on Jemma scores and lifetime risk: 1. A Jemma score greater than 3% is considered moderate risk. If this is the case, consider specialist referral to assess eligibility for a risk reducing agent. 2. If overall lifetime risk for the development of breast cancer is 20% or higher, the patient may qualify for future screening with alternating mammogram and breast MRI. Electronically signed and approved by: Israel Juan M.D. Radiologist
== END | disposition home or self-care (01) ==
LOC: RADMAMWWP 09:37
PROVIDERS: ATTEND Surgery
DX: Z12.31 Encounter for screening mammogram for malignant neoplasm of breast (principal); Z78.0 Asymptomatic menopausal state
CPT/HCPCS: 77063; 77067

== ENCOUNTER → 2023-11-24 | Outpatient (CLI) | payer MEDICARE ==
--- NOTE | 2023-11-24 13:00 | P.PN ---
Subjective Progress Note Date: 11/24/23 Principal diagnosis: fibrocystic breast changes Fibrocystic breast changes, fungal infection under both breast Haley is a 68 year old white female status post ultra-sound core biopsy of a site in the right breast on 11-11-21. This was benign concordant. 11-15-22 bilateral mammogram BIRAD 2, personally reviewed At this time the patient is not complaining of any changes of concern in her breast. Bilateral mammogram 11-17-23 BIRAD 2 personally reviewed. Patient has declined chemo-prevention in the past. Jemma 5 year: 1.7% life time risk: 5.1% Nicotine: none caffiene: Diet Coke daily 1 Chocolate: none Family history: Daughter: Colon cancer Mother: Colon cancer Hormonal history: Menarche: 13 , breast fed: no, age at first : 19 menopause: 48 BCP:7 years hormones: none Surgical history: Pacemaker replaced Medical history: Atrial fibrillation HTN hyperlipedema Social History: Nicotine: Negative Alcohol: Negative Drugs: Negative - Constitutional Constitutional: Denies chills, Denies fever - EENT Eyes: denies blurred vision, denies pain Ears: deny: decreased hearing, tinnitus Ears, nose, mouth and throat: Denies headache, Denies sore throat - Breasts Breasts: bilateral: as per HPI - Cardiovascular Cardiovascular: Denies chest pain, Denies shortness of breath - Respiratory Respiratory: Denies cough - Gastrointestinal Gastrointestinal: Denies abdominal pain, Denies diarrhea, Denies nausea, Denies vomiting - Genitourinary (Female) Genitourinary: Denies dysuria, Denies hematuria - Menstruation Menstruation: Reports postmenopausal - Musculoskeletal Musculoskeletal: Denies myalgias - Integumentary Integumentary: Denies pruritus, Denies rash - Neurological Neurological: Denies numbness, Denies weakness - Psychiatric Psychiatric: Denies anxiety, Denies depression - Endocrine Endocrine: Denies fatigue, Denies weight change - Hematologic/Lymphatic Comment: patient is on xeralto - Allergic/Immunologic Allergic/Immunologic: Reports as per HPI Past Medical History Past Medical History: Atrial Fibrillation, Hyperlipidemia, Hypertension Additional Past Medical History / Comment(s): back pain History of Any Multi-Drug Resistant Organisms: None Reported Past Surgical History: Pacemaker Additional Past Surgical History / Comment(s): COLONOSCOPY. PACEMAKER -[employer] BY DR ESCALANTE May. Past Anesthesia/Blood Transfusion Reactions: Postoperative Nausea & Vomiting (PONV) Additional Past Anesthesia/Blood Transfusion Reaction / Comment(s): PONV AFTER COLONOSCOPY Type of Cardiac Device: Permanent Pacemaker Device Placement Date:: 05/29/2008 Past Psychological History: No Psychological Hx Reported Past Alcohol Use History: None Reported Past Drug Use History: None Reported - Past Family History Mother Family Medical History: Cancer Additional Family Medical History / Comment(s): COLON CANCER Medications and Allergies Home Medications Medication Instructions Recorded Confirmed Type lisinopriL [Zestril] 10 mg PO BID 12/13/15 11/05/21 History Atorvastatin Calcium [Lipitor] 20 mg PO HS 10/20/18 11/05/21 History Ergocalciferol (Vitamin D2) 50,000 unit PO MIRAMONTES 10/20/18 11/05/21 History [Vitamin D2] Metoprolol Tartrate [Lopressor] 25 mg PO BID 10/20/18 11/05/21 History Rivaroxaban [Xarelto] 20 mg PO DAILY 10/20/18 11/05/21 History hydroCHLOROthiazide 25 mg PO DAILY 10/20/18 11/05/21 History Allergies Allergy/AdvReac Type Severity Reaction Status Date / Time No Known Allergies Allergy Verified 11/05/21 16:03 Objective - Constitutional General appearance: Present: cooperative - EENT Eyes: Present: EOMI ENT: Present: hearing grossly normal - Neck Neck: Present: normal ROM - Respiratory Respiratory: bilateral: CTA - Cardiovascular Rhythm: regular Heart sounds: normal: S1, S2 - Gastrointestinal General gastrointestinal: Present: soft - Integumentary Integumentary: Present: normal turgor - Musculoskeletal Musculoskeletal: Present: gait normal - Psychiatric Psychiatric: Present: A&O x's 3, appropriate affect, intact judgment & insight - Additional findings Additional findings: Breast Exam: BRA: 46C inspection: bilateral grade 3 ptosis, well healed scar at pacemaker site; lateral aspect of right breast related to her bra Palpation: Right breast: Multiple positional exam fibrocystic changes no dominant masses or nodules of concern Right axilla: No adenopathy of concern Left breast: Multiple positional exam fibrocystic changes no dominant masses or nodules of concern Left axilla: No adenopathy of concern Assessment and Plan Assessment: Impression: Atrial fibrillation HTN hyperlipedema Fibrocystic breast changes Recent bilateral mammogram 12-10-22 benign BIRADS 2 personally reviewed Fungal infection under both breasts resolved Plan: Bilateral mammogram 1 year Follow-up in 1 year, unes there are any concerns and then she will follow-up sooner CC: Trena Downs
[2023-11-24 14:32] VITALS: BP 158/90; PULSE 86; RESP 17; TEMP 97.8
== END ==
LOC: WWCWWP 12:29
PROVIDERS: ATTEND Surgery
DX: R92.8 Other abnormal and inconclusive findings on diagnostic imaging of breast (principal); N60.11 Diffuse cystic mastopathy of right breast; N60.12 Diffuse cystic mastopathy of left breast; I48.91 Unspecified atrial fibrillation; I10 Essential (primary) hypertension; E78.5 Hyperlipidemia, unspecified; B36.8 Other specified superficial mycoses; Z79.01 Long term (current) use of anticoagulants; Z95.0 Presence of cardiac pacemaker; Z79.899 Other long term (current) drug therapy

== ENCOUNTER → 2024-11-20 | Outpatient (CLI) | payer MEDICARE ==
--- NOTE | 2024-11-20 10:16 | MM ---
Reason for Exam: Screening (asymptomatic). Last screening mammogram was performed 12 month(s) ago. Patient History: Menarche at age 12. First Full-Term at age 19. Postmenopausal. 11/11/2021, Benign Core Biopsy on the right side. Risk Values: Jemma 5 year model risk: 1.7%. NCI Lifetime model risk: 4.7%. Prior Study Comparison: 05/17/2022 Right MG diagnostic mammo RT w CAD, [facility]. 11/15/2022 Bilateral MG 3D diag mammo w/cad [facility], [facility]. 11/17/2023 Bilateral MG 3D screening mammo w/cad, [facility]. Tissue Density: There are scattered areas of fibroglandular density. Findings: Analyzed By CAD. Mammotome biopsy clip right breast is redemonstrated. Left axillary pacemaker device is again seen. There are few scattered benign-appearing calcifications bilaterally redemonstrated. There is no suspicious new group of microcalcifications or new suspicious mass in either breast. Overall Assessment: Benign, BI-RAD 2 Management: Screening Mammogram of both breasts in 1 year. . Patient should continue monthly self-breast exams. A clinical breast exam by your physician is recommended on an annual basis. This exam should not preclude additional follow-up of suspicious palpable abnormalities. Note on Jemma scores and lifetime risk: 1. A Jemma score greater than 3% is considered moderate risk. If this is the case, consider specialist referral to assess eligibility for a risk reducing agent. 2. If overall lifetime risk for the development of breast cancer is 20% or higher, the patient may qualify for future screening with alternating mammogram and breast MRI. [facility], , 11/20/2024 10:14 AM. Electronically signed and approved by: Osmany Regan M.D.
== END | disposition home or self-care (01) ==
LOC: RADMAMWWP 09:44
PROVIDERS: ATTEND Surgery
DX: Z12.31 Encounter for screening mammogram for malignant neoplasm of breast (principal); R92.323 Mammographic fibroglandular density, bilateral breasts; Z78.0 Asymptomatic menopausal state
CPT/HCPCS: 77063; 77067

== ENCOUNTER → 2024-11-22 | Outpatient (CLI) | payer MEDICARE ==
[2024-11-22 09:50] VITALS: BP 124/79; PULSE 80; RESP 17; TEMP 97.6
--- NOTE | 2024-11-22 10:01 | P.PN ---
Subjective Progress Note Date: 11/22/24 11-22-24 Principal diagnosis: Fibrocystic breast changes Haley is a 69 year old white female status post ultra-sound core biopsy of a site in the right breast on 11-11-21. This was benign concordant. 11-20-24 bilateral mammogram BIRAD 2, personally reviewed Bilateral erythema lateral aspects of the breast/fungal infection Patient has declined chemo-prevention in the past. Jemma 5 year: 1.7% life time risk: 4.7 % Nicotine: none caffiene: Diet Coke daily 1 Chocolate: none Family history: Daughter: Colon cancer Mother: Colon cancer Hormonal history: Menarche: 13 , breast fed: no, age at first : 19 menopause: 48 BCP:7 years hormones: none Surgical history: Pacemaker Medical history: Atrial fibrillation HTN hyperlipedema Social History: Nicotine: Negative Alcohol: Negative Drugs: Negative - Constitutional Constitutional: Denies chills, Denies fever - EENT Eyes: denies blurred vision, denies pain Ears: deny: decreased hearing, tinnitus Ears, nose, mouth and throat: Denies headache, Denies sore throat - Breasts Breasts: bilateral: as per HPI - Cardiovascular Cardiovascular: Denies chest pain, Denies shortness of breath - Respiratory Respiratory: Denies cough - Gastrointestinal Gastrointestinal: Denies abdominal pain, Denies diarrhea, Denies nausea, Denies vomiting - Genitourinary (Female) Genitourinary: Denies dysuria, Denies hematuria - Menstruation Menstruation: Reports postmenopausal - Musculoskeletal Musculoskeletal: Denies myalgias - Integumentary Integumentary: Denies pruritus, Denies rash - Neurological Neurological: Denies numbness, Denies weakness - Psychiatric Psychiatric: Denies anxiety, Denies depression - Endocrine Endocrine: Denies fatigue, Denies weight change - Hematologic/Lymphatic Comment: patient is on xeralto - Allergic/Immunologic Allergic/Immunologic: Reports as per HPI Past Medical History Past Medical History: Atrial Fibrillation, Hyperlipidemia, Hypertension Additional Past Medical History / Comment(s): back pain History of Any Multi-Drug Resistant Organisms: None Reported Past Surgical History: Pacemaker Additional Past Surgical History / Comment(s): COLONOSCOPY. PACEMAKER -[place] BY DR ESCALANTE May. Past Anesthesia/Blood Transfusion Reactions: Postoperative Nausea & Vomiting (PONV) Additional Past Anesthesia/Blood Transfusion Reaction / Comment(s): PONV AFTER COLONOSCOPY Type of Cardiac Device: Permanent Pacemaker Device Placement Date:: 05/29/2008 Past Psychological History: No Psychological Hx Reported Past Alcohol Use History: None Reported Past Drug Use History: None Reported - Past Family History Mother Family Medical History: Cancer Additional Family Medical History / Comment(s): COLON CANCER Medications and Allergies Home Medications Medication Instructions Recorded Confirmed Type lisinopriL [Zestril] 10 mg PO BID 12/13/15 11/05/21 History Atorvastatin Calcium [Lipitor] 20 mg PO HS 10/20/18 11/05/21 History Ergocalciferol (Vitamin D2) 50,000 unit PO MIRAMONTES 10/20/18 11/05/21 History [Vitamin D2] Metoprolol Tartrate [Lopressor] 25 mg PO BID 10/20/18 11/05/21 History Rivaroxaban [Xarelto] 20 mg PO DAILY 10/20/18 11/05/21 History hydroCHLOROthiazide 25 mg PO DAILY 10/20/18 11/05/21 History Allergies Allergy/AdvReac Type Severity Reaction Status Date / Time No Known Allergies Allergy Verified 11/05/21 16:03 Objective - Vital Signs Vital signs: Vital Signs Temp 97.6 F 11/22/24 09:48 Pulse 80 11/22/24 09:48 Resp 17 11/22/24 09:48 BP 124/79 11/22/24 09:48 Pulse Ox 99 11/22/24 09:48 FiO2 Intake & Output 11/21/24 11/22/24 11/22/24 18:59 06:59 18:59 Weight 113.398 kg - Constitutional General appearance: Present: cooperative - EENT Eyes: Present: EOMI ENT: Present: hearing grossly normal - Neck Neck: Present: normal ROM - Respiratory Respiratory: bilateral: CTA - Cardiovascular Rhythm: regular Heart sounds: normal: S1, S2 - Integumentary Integumentary: Present: normal turgor - Musculoskeletal Musculoskeletal: Present: gait normal - Psychiatric Psychiatric: Present: A&O x's 3, appropriate affect, intact judgment & insight - Additional findings Additional findings: Breast Exam: BRA: 44C inspection: bilateral grade 3 ptosis Palpation: Right breast: Multiple positional exam fibrocystic changes no dominant masses or nodules of concern Particular attention to the area posterior to the nipple areolar complex does not reveal any discrete mass Right axilla: No adenopathy of concern Left breast: Multiple positional exam fibrocystic changes no dominant masses or nodules of concern Left axilla: No adenopathy of concern Bilateral fungal infection under both breast Assessment and Plan Assessment: Impression: Atrial fibrillation HTN hyperlipedema Fibrocystic breast changes Recent bilateral mammogram 11-20-24 benign BIRADS 2 personally reviewed Fungal infection under both breasts Plan: Nystatin as needed Bilateral mammogram 1 year Follow-up in 1 year CC: Trena Downs
== END ==
LOC: WWCWWP 09:12
PROVIDERS: ATTEND Surgery
DX: N60.19 Diffuse cystic mastopathy of unspecified breast (principal); I10 Essential (primary) hypertension; I48.91 Unspecified atrial fibrillation; E78.5 Hyperlipidemia, unspecified; B37.89 Other sites of candidiasis